=== PATIENT | female | born 1980 | race Caucasian/White ===

== ENCOUNTER 2017-12-19 08:56 | Emergency (ER) | payer MEDICAID, OTHER ==
[2017-12-19 09:04] VITALS: RESP 16; TEMP 98.2; O2SAT 97
--- NOTE | 2017-12-19 09:14 | EDPHY ---
H & P Stated Complaint: , vaginal bleeding Time Seen by Provider: 12/19/17 09:02 HPI/ROS: CHIEF COMPLAINT: , vaginal bleeding HISTORY OF PRESENT ILLNESS: 37-year-old female, , last menstrual. 11/07/2017 , positive home test 12/08/2017 complaining of 4 days of intermittent vaginal bleeding with intermittent suprapubic cramping. No passage of clots. No dizziness. No back or flank pain. No urinary abnormality such as dysuria or increased urinary frequency. No back or flank pain. No IVF. No primary care provider or quality control expert. PRIMARY CARE PROVIDER: REVIEW OF SYSTEMS: A ten point review of systems was performed and is negative with the exception of the items mentioned in the HPI PAST MEDICAL & SURGICAL HISTORY: SOCIAL HISTORY: Nonsmoker PHYSICAL EXAM (Prior to examination, patient consented to physical exam, hands were washed and my usual and customary physical exam procedures followed) 1) GENERAL: Well-developed, well-nourished, alert and oriented. Appears to be in no acute distress. Smiling, shakes my hand appears well 2) HEAD: Normocephalic, atraumatic 3) HEENT: Pupils equal, round, reactive to light bilaterally. Sclera anicteric. [Nasopharynx, oropharynx, clear, no lesions. Moist membranes 4) NECK: Full range of motion, no meningeal signs. 5) LUNGS: Clear auscultation bilaterally, no wheezes, no rhonchi, no retractions. 6) HEART: Regular rate and rhythm, no murmur, no heave, no gallop. 7) ABDOMEN: No guarding, no rebound, no focal tenderness, negative McBurney's, negative Coats's, negative Rovsing's, negative peritoneal sign, I am unable to elicit any abdominal pain on exam 8) MUSCULOSKELETAL: Moving all extremities, no focal areas of tenderness, no obvious trauma. No peripheral edema or discoloration. 9) BACK: No CVA tenderness, no midline vertebral tenderness, no fluctuance, no step-off, no obvious trauma, no visual or palpable abnormality. 10) SKIN: No rash, no petechiae. 11) Psychiatric: Patient is oriented X 3, there is no agitation. DIFFERENTIAL DIAGNOSIS: In no particular order including but not limited to cystitis, ectopic , threatened , completed - Personal History LMP (Females 10-55): Current Tetanus/Diphtheria Vaccine: Unsure Current Tetanus Diphtheria and Acellular Pertussis (TDAP): Unsure - Medical/Surgical History Hx Asthma: No Hx Chronic Respiratory Disease: No Hx Diabetes: No Hx Cardiac Disease: No Hx Renal Disease: No Hx Cirrhosis: No Hx Alcoholism: No Hx HIV/AIDS: No Hx Splenectomy or Spleen Trauma: No Other PMH: denies - Social History Smoking Status: Never smoked Constitutional: Initial Vital Signs Temperature (C) 36.8 C 12/19/17 09:02 Heart Rate 81 12/19/17 09:02 Respiratory Rate 16 12/19/17 09:02 Blood Pressure 119/84 H 12/19/17 09:02 O2 Sat (%) 97 12/19/17 09:02 O2 Delivery Mode Room Air Allergies/Adverse Reactions: No Known Allergies Allergy (Unverified 12/19/17 09:01) Home Medications: Medication Instructions Recorded Cephalexin [Keflex] 500 mg PO TID 7 Days cap 12/19/17 Medical Decision Making - Diagnostics Imaging Results: Images reviewed myself ED Course/Re-evaluation: 9:13 a.m.: Plan will be ultrasound, blood and urine. Care of patient under supervision of secondary supervising physician Dr Johnson with whom I discussed case 10:30 a.m.: Re-evaluation. Discussed with patient her imaging results and diagnostic results. She is noted to have bacteriuria. We discussed asymptomatic bacteriuria - Data Points Laboratory Results: Laboratory Results 12/19/17 09:10 12/19/17 09:10 Departure - Departure Disposition: Home, Routine, Self-Care Clinical Impression: Vaginal bleeding, Threatened , Asymptomatic bacteriuria during Condition: Good Instructions: Threatened Miscarriage (ED), First Trimester Vaginal Bleed (ED) Additional Instructions: If you develop further abdominal pain, vaginal bleeding, dizziness or lightheadedness return to the ER immediately for re-evaluation. Referrals: Kalyn Eduardo MD [Medical Doctor] - 1-2 days without fail Prescriptions: Cephalexin [Keflex] 500 mg PO TID 7 Days cap
[2017-12-19 09:30] LABS: PLATELET COUNT 241 10^3/uL (150-400)
[2017-12-19 11:29] VITALS: BP 111/69; PULSE 88
== END 2017-12-19 11:30 | disposition home or self-care (01) ==
DX: O20.8 Other hemorrhage in early pregnancy (principal); O20.0 Threatened abortion; O23.41 Unspecified infection of urinary tract in pregnancy, first trimester; Z3A.01 Less than 8 weeks gestation of pregnancy